=== PATIENT | male | born 1985 | race Caucasian/White ===

== ENCOUNTER 2017-10-28 19:54 | Emergency (ER) | payer MEDICAID, OTHER ==
[~2017-10-28] VITALS: Ht 175.3 cm; Wt 72.8 kg
[2017-10-28] MEDS ORDERED: ONDANSETRON ODT 4 MG ONE (20:42)
[2017-10-28] MEDS ORDERED: HYDROcodone/APAP 5/325 TABLET ONE (20:43)
[2017-10-28] MEDS ORDERED: ONDANSETRON ODT 4 MG PO ONE (21:00)
[2017-10-28] MEDS ORDERED: HYDROcodone/APAP 5/325 TABLET PO ONE (21:00)
[2017-10-28 21:50] VITALS: BP 115/53
== END 2017-10-28 22:02 | disposition home or self-care (01) ==
LOC: ED 21:38
DX: S06.0X9A Concussion with loss of consciousness of unspecified duration, initial encounter (principal); W01.0XXA Fall on same level from slipping, tripping and stumbling without subsequent striking against object, initial encounter; Y93.89 Activity, other specified; Y92.009 Unspecified place in unspecified non-institutional (private) residence as the place of occurrence of the external cause; Y99.9 Unspecified external cause status
CPT/HCPCS: 70450; 99284; Q0162